=== PATIENT | male | born 1990 | race African-American/Black ===

== ENCOUNTER 2017-06-01 20:51 | Emergency (ER) | payer MEDICAID, OTHER ==
[2017-06-01] MEDS ORDERED: NEOMYCIN-BACITRACIN-POLYM UNITDOSE PKG TOP OINT TOP ONE (23:00)
[2017-06-01] MEDS: LIDOCAINE 1% HCL (LOCAL ANESTH.) INJ 20ML MDV IJ ONE ×2 (23:03→23:04)
[2017-06-01 23:31] VITALS: BP 171/98
[2017-06-02] MEDS ORDERED: LET TOPICAL SOLN 5 ML TOP ONE
[2017-06-02] MEDS ORDERED: TETANUS-DIPTH-ACEL PERTUSSIS 0.5ML SYRG IM ONE (00:15)
== END 2017-06-02 00:27 | disposition home or self-care (01) ==
LOC: ER 20:55
DX: S61.213A Laceration without foreign body of left middle finger without damage to nail, initial encounter (principal); F17.210 Nicotine dependence, cigarettes, uncomplicated; F12.10 Cannabis abuse, uncomplicated; Z23 Encounter for immunization; W45.8XXA Other foreign body or object entering through skin, initial encounter; Y93.89 Activity, other specified; Y99.8 Other external cause status; Y92.89 Other specified places as the place of occurrence of the external cause
CPT/HCPCS: 12002; 90471; 90715; 99283; J2001